=== PATIENT | female | born 1995 | race Caucasian/White ===

== ENCOUNTER → 2019-02-21 08:51 | Outpatient (CLI) | payer OTHER, SELFPAY ==
[2019-02-21 08:15] VITALS: BMI 21.4
[2019-02-21 10:02] LABS: Follicle Stimulating Hormone 6.6 mIU/mL; Thyroid Stim Hormone (TSH) 1.76 uIU/mL (0.358-3.74)
== END ==
PROVIDERS: Family Provider Pediatrics; PCP Pediatrics; Referring Provider Nurse Practitioner Women's Health; Visit Provider Nurse Practitioner Women's Health
DX: N91.2 Amenorrhea, unspecified (principal)
CPT/HCPCS: 36415; 83001; 84443

== ENCOUNTER → 2019-03-23 15:22 | Outpatient (CLI) | payer OTHER, SELFPAY ==
[2019-02-21 08:15] VITALS: BMI 21.4
[2019-03-23 16:40] LABS: Estradiol 13.3 pg/mL; Prolactin 9.3 ng/mL
[2019-03-26 18:45] LABS: DHEA Sulfate 343.9 ug/dL (110.0-431.7)
[2019-03-27 17:06] LABS: Testosterone Free 1.5 pg/mL (0.0-4.2)
[2019-03-30 16:43] LABS: 17-Hydroxyprogesterone 16 ng/dL (.)
== END ==
PROVIDERS: Family Provider Pediatrics; PCP Pediatrics; Referring Provider Nurse Practitioner Women's Health; Visit Provider Nurse Practitioner Women's Health
DX: N91.2 Amenorrhea, unspecified (principal)
CPT/HCPCS: 36415; 82627; 82670; 83498; 84146; 84402; 82626

== ENCOUNTER → 2019-04-19 07:32 | Outpatient (CLI) | payer OTHER, SELFPAY ==
[2019-02-21 08:15] VITALS: BMI 21.4
--- NOTE | 2019-04-19 07:32 | MRI_ITS ---
STUDY: MRI BRAIN WITH AND WITHOUT CONTRAST (ATTENTION PITUITARY GLAND) REASON FOR EXAM: Female, 23 years old. low estrogen, hypopituitarism TECHNIQUE: Standardized multiplanar fat and water weighted pulse sequences were obtained. 10 IV Dotarem was administered for the contrast portion of the examination. COMPARISON: None. FINDINGS: There is minimal enlargement of the right pituitary in comparison with the left pituitary. Additionally there is deviation of the pituitary infundibulum to the left. Overall however size of the pituitary gland for the patient?s age and gender. Normal optic chiasm and hypothalamus. Normal size of the ventricles and extra-axial spaces for the patient's age. Normal white matter tracts of the supratentorial brain. Normal bilateral basal ganglia. Normal thalami. Normal flow voids within the major intracranial circulation suggesting patency by spin echo criteria. Normal venous enhancement. There is no enhancing intra-axial or extra-axial abnormality. There is no extra-axial fluid accumulation. Normal tectal plate and pineal gland. Normal midbrain, moustapha and medulla. Normal cerebellum. Normal basal cisterns. Normal bilateral temporal bones. Normal bilateral internal auditory canals. No demonstrated orbital abnormality, within the constraints of a routine brain study. Normal visualized paranasal sinuses. Normal calvarium and skull base. Normal visualized upper cervical spine. Normal visualized soft tissue structures. MRI/Brain W/WO Contrast IMPRESSION: Pituitary asymmetry and minimal deviation of the infundibulum. Occult microadenoma is not excluded. Correlation with laboratory data and follow-up can be obtained. Electronically Signed: Estevan Schuster MD at 11:47 EDT Tel , Service support ,
== END ==
PROVIDERS: Family Provider Pediatrics; PCP Pediatrics; Referring Provider Nurse Practitioner Women's Health; Visit Provider Nurse Practitioner Women's Health
DX: E23.0 Hypopituitarism (principal)
CPT/HCPCS: 70553; A9575

== ENCOUNTER → 2019-09-17 14:44 | Outpatient (CLI) | payer OTHER, SELFPAY ==
[2019-09-17 13:53] VITALS: BMI 21.4
[2019-09-17 16:16] LABS: Estradiol 30.9 pg/mL; Free T3 2.4 pg/mL (2.18-3.98); T4 Free Direct 1.02 ng/dL (0.76-1.46)
[2019-09-21 08:07] LABS: DHEA Sulfate 432.8 ug/dL (110.0-431.7); Testosterone, % Free 2.61 % (0.50-2.80); Testosterone, Free 0.68 ng/dL (0.10-0.85); Testosterone, Total 26 ng/dL (8-48)
[2019-09-21 13:34] LABS: Adrenocorticotropic Hormone 22.8 pg/mL (7.2-63.3); Thyroid Peroxidase AB 8 IU/mL (0-34)
[2019-09-21 16:13] LABS: 17-Hydroxyprogesterone 21 ng/dL (.)
== END ==
PROVIDERS: Family Provider Pediatrics; PCP Pediatrics; Referring Provider Internal Medicine Endocrinology, Diabetes & Metabolism; Visit Provider Internal Medicine Endocrinology, Diabetes & Metabolism
DX: N91.1 Secondary amenorrhea (principal)
CPT/HCPCS: 36415; 82024; 82627; 82670; 83498; 84402; 84403; 84439; 84481; 86376; 82626